=== PATIENT | male | born 1980 | race American Indian/Alaskan Native ===

== ENCOUNTER 2023-12-28 15:51 | Emergency (ER) | payer OTHER ==
[2023-12-28] MEDS: Albuterol 0.083% 2.5 MG/3 ML Neb Soln NEB ONE (16:28)
[2023-12-28] MEDS: Take Home: Albuterol 18 GM Inhaler, 1 Inhaler Pack INH PRN (18:17)
== END 2023-12-28 18:26 | disposition home or self-care (01) ==
LOC: VM.ED 15:51
DX: Z77.098 Contact with and (suspected) exposure to other hazardous, chiefly nonmedicinal, chemicals (principal); R07.89 Other chest pain
CPT/HCPCS: 71045; 93005; 94640; 99285; A9270; J7613-GY